=== PATIENT | female | born 1975 | race African-American/Black ===

== ENCOUNTER 2019-08-24 18:28 | Emergency (ER) | payer MEDICAID ==
[~2019-08-24] VITALS: Ht 172.7 cm; Wt 64.0 kg
[2019-08-24] MEDS ORDERED: DEXAMETHASONE 4MG TABLET PO ONE (20:30)
[2019-08-24] MEDS ORDERED: DIPHENHYDRAMINE 25MG CAPSULE PO ONE (20:30)
[2019-08-24 20:49] VITALS: BP 128/65
== END 2019-08-24 20:49 | disposition home or self-care (01) ==
LOC: ER 18:28
DX: S10.96XA Insect bite of unspecified part of neck, initial encounter (principal); L29.9 Pruritus, unspecified; Z88.1 Allergy status to other antibiotic agents; W57.XXXA Bitten or stung by nonvenomous insect and other nonvenomous arthropods, initial encounter; Y93.89 Activity, other specified; Y92.89 Other specified places as the place of occurrence of the external cause; Y99.8 Other external cause status
CPT/HCPCS: 99283; J8540; Q0163